=== PATIENT | male | born 1960 | race Caucasian/White ===

== ENCOUNTER 2019-07-26 02:45 | Emergency (ER) | payer MEDICARE, SELFPAY ==
[2019-07-26 02:52] VITALS: BP 155/84; PULSE 80; RESP 16; TEMP 36.9; O2SAT 94; BMI 25.8
--- NOTE | 2019-07-26 02:56 | ED_ITS ---
HPI - Male Genitourinary General: Chief complaint: Urogenital-Male Stated complaint: difficulty urinating Time Seen by Provider: 07/26/19 02:53 History of Present Illness: HPI Narrative: Mr. Camacho is a nice 59-year-old male who comes in complaining of difficulty passing urine this evening. Patient states he is got BPH and has been having increased difficulty over the past 2 weeks. Denies any fevers or chills. He denies any dysuria. Has abdominal pain. States tonight he just has a hard time initiating a stream. Denies any back pain or flank pain. Associated symptoms: Deny dysuria, hematuria, nausea, urinary incontinence or vomiting Review of Systems General: Reports: other (negative unless marked) Const: Denies: fever, chills, body aches, fatigue, malaise or diaphoresis Eyes: Denies: change in vision or blurry vision ENMT: Denies: throat pain, painful swallowing, hoarseness, ear pain, ear discharge, Change in hearing or nasal discharge Card: Denies: chest pain, palpitations, irregular heart rhythm, syncope, pre- syncope, shortness of breath on exertion or shortness of breath when lying down Resp: Denies: shortness of breath, productive cough, non-productive cough, wheezing, coughing up blood or chest congestion GI: Denies: abdominal pain, nausea, vomiting, vomiting blood, coffee grounds in vomit, diarrhea, constipation, cramping, blood in stool or black tarry stool : Reports: difficulty urinating; Denies: flank pain, painful urination, urinary frequency, urinary urgency, urinary incontinence or blood in urine Musc: Denies: neck pain, back pain, extremity pain, extremity swelling, joint pain, joint swelling, joint warmth or joint stiffness Skin/Breast: Denies: rash, skin tenderness or yellow skin Neuro: Denies: headache, numbness in extremities, weakness in extremities, changes in sensation, lack of coordination, difficulty walking, dizziness, vertigo or confusion Endo: Denies: excessive thirst, tired all the time, cold intolerance, excessive sweating, flushing or hot flashes Paco/Lymph: Denies: easy bruising, easy bleeding, petechiae or enlarged lymph nodes All/Imm: Denies: hives, throat swelling, tongue swelling, facial swelling or acute wheezing PFSH ED PFSH: Medical History BPH (benign prostatic hyperplasia) Crohn's disease Social History Smoking and tobacco status: current every day smoker Physical Exam Const: COMMON NORMALS: no apparent distress, oriented x3, no limitations, healthy appearing and well nourished EXAM LIMITATIONS: no altered mental status GENERAL APPEARANCE: cooperative, well kempt and well developed ORIENTATION/CONSCIOUSNESS: Yes awake HENMT: COMMON NORMALS: normocephalic, head/scalp atraumatic, hearing grossly normal bilaterally, external ears normal, EAC's normal, external nose normal and moist oral mucous membranes HEAD & SCALP: normal to inspection, normocephalic and atraumatic FACE & SINUS: normal facial exam and face symmetric NOSE: external nose normal and nares normal EXTERNAL EAR: Yes external ears normal EXTERNAL AUDITORY CANAL: EAC's normal MOUTH: oral and palatal mucosa normal and tongue normal Eye: COMMON NORMALS: PERRL, EOMs intact bilaterally, conjunctivae normal and no scleral icterus GENERAL EYE: normal appearance of both eyes and normal light reflex CONJUNCTIVA: Yes conjunctivae normal SCLERA: sclerae normal CORNEA: Yes corneas normal PUPIL: Yes PERRL DIRECT OPHTHALMOSCOPY: Yes normal light reflex Neck/C-Spine: COMMON NORMALS: full ROM, no lymphadenopathy, supple, no meningeal signs and no JVD GENERAL: Yes normal visual inspection and Yes trachea midline CERVICAL SPINE: Yes cervical ROM normal Chest: COMMONS NORMALS: inspection of chest normal and palpation of chest normal Resp: COMMON NORMALS: normal respiratory effort, no retractions, no use of accessory muscles and clear to auscultation bilaterally EFFORT & INSPECTION: Yes able to speak in complete sentences AUSCULTATION: clear to auscultation bilaterally Cardio: COMMON NORMALS: no JVD, regular rate, regular rhythm, S1 normal heart sound, S2 normal heart sound, no gallops, no clicks, no murmurs and no rub JUGULAR VENOUS DISTENTION: no JVD RATE: regular rate RHYTHM: regular rhythm HEART SOUNDS: S1 normal and S2 normal GI: COMMON NORMALS: soft to palpation, non-tender, no hepatosplenomegaly and no masses INSPECTION: Yes normal to inspection PALPATION: Yes soft and Yes no hepatosplenomegaly : COMMON NORMALS: Yes no CVA tenderness BLADDER/KIDNEY EXAM: Yes no CVA tenderness Back/Pelvis: COMMON NORMALS: no CVA tenderness, thoracic and lumbar spine normal to inspection, no thoracic nor lumbar tenderness and thoraco-lumbar ROM normal Extremity: COMMON NORMALS: normal to inspection, full ROM, normal capillary refill, no joint enlargement, no clubbing, cyanosis or edema and no calf ten derness Neuro: COMMON NORMALS: oriented x3, CN's II-XII intact bilaterally, moves all extremities, no focal motor deficits and no sensory deficits noted MENINGEAL SIGNS: Yes no meningeal signs Psych: COMMON NORMALS: mental status grossly normal, thought process normal, cooperative, affect normal, speech normal and activity/motor behavior normal APPEARANCE: Yes well kempt SPEECH: Yes normal speech THOUGHT PROCESS: normal thought process Skin: COMMON NORMALS: no rashes or lesions noted, skin turgor normal, no jaundice, no petechiae and no mottling GENERAL SKIN EXAM: no rashes or lesions noted and turgor normal Course Vital Signs: Vital signs: Vital Signs Temperature 98.4 F 07/26/19 02:52 Pulse Rate 78 07/26/19 03:25 Respiratory Rate 16 07/26/19 03:25 Blood Pressure 123/78 07/26/19 03:25 Pulse Oximetry 98 07/26/19 03:25 MDM - Male MDM Narrative: Medical decision making narrative: A Sanders catheter was placed and over 600 cc of light yellow urine was obtained. Patient had tremendous relief in his discomfort. Because of his Remicade for his Crohn's disease I am going to place him on antibiotic. He will follow-up with Dr. Paige and use a Sanders catheter and leg bag until seen by him. I see no sign of infection at this time the patient is afebrile, his white count is slightly elevated but he is urine is clear. Lab Data: Attestation: I reviewed the patient's lab results. Labs: Lab Results 07/26/19 07/26/19 07/26/19 Range/Units 03:30 03:30 03:30 WBC 10.8 H (4.0-10.0) 10^3/ uL RBC 4.80 (4.1-5.3) 10^6/u L Hgb 14.8 (11.7-16.6) g/dL Hct 44.9 (42.0-52.0) % MCV 93.5 (80-94) fL MCH 30.8 (28.0-34.0) pg MCHC 33.0 (30.0-36.0) g/dL RDW 13.7 (12.1-15.1) % Plt Count 258 (130-400) 10^3/c mm MPV 10.3 (7.4-10.4) fL Neut % (Auto) 81.5 % Lymph % (Auto) 10.8 % [place] % (Auto) 5.9 % Eos % (Auto) 1.2 % Baso % (Auto) 0.3 % Neut # (Auto) 8.8 H (1.8-7.7) 10^3/u L Lymph # (Auto) 1.2 (0.8-4.8) 10^3/u L [place] # (Auto) 0.6 (0.2-0.9) 10^3/u L Eos # (Auto) 0.1 (0.0-0.8) 10^3/u L Baso # (Auto) 0.0 (0.0-0.1) 10^3/u L Nucleated RBC % (a uto) 0 % Nucleated RBCs # 0.0 /100WBC Sodium 141 (136-145) mmol/L Potassium 3.5 (3.5-5.1) mmol/L Chloride 102 (98-107) mmol/L Carbon Dioxide 26 (22-29) mmol/L Anion Gap 16.5 (5-19) BUN 6 L (8-23) mg/dL Creatinine 0.9 (0.7-1.2) mg/dL GFR Calculation 86.1 L (90-130) mL/min Glucose 114 (65-115) mg/dL Calculated Osmolal ity 289 (285-295) mOsm/k g Calcium 9.6 (8.5-10.5) mg/dL Total Bilirubin 0.2 (0.15-1.2) mg/dL AST 19 (0-40) U/L ALT 13 (0-41) U/L Alkaline Phosphata se 97 (40-130) IU/L Total Protein 8.0 (6.6-8.7) g/dL Albumin 4.5 (3.5-5.2) g/dL Globulin 3.5 (1.3-4.6) g/dL Urine Color Yellow (Yellow) Urine Appearance Clear (CLEAR) Urine pH 5 (5-7) Ur Specific Gravit y 1.010 (1.005-1.030) Urine Protein Neg (Negative) Urine Glucose (UA) Norm (Normal) Urine Ketones Negative (Negative) Urine Blood 2+ H (Negative) Urine Nitrate Negative (Negative) Urine Bilirubin Neg (NEGATIVE) Urine Urobilinogen Norm (Negative) mg/dL Ur Leukocyte Jo-Ann ase Negative (Negative) Urine RBC Rare (0-2) /hpf Urine WBC Rare (0-5) /hpf Ur Squamous Epith Cells Rare (0-5) Urine Bacteria Trace (NONE) Discharge Plan Discharge Patient Disposition: Home, Self-Care Clinical Impression: Acute urinary retention Condition: Stable Prescriptions: New ciprofloxacin HCl [Cipro] 500 mg tablet 500 mg PO BID Qty: 20 RF: 0 Discharge Orders: Discharge Order (Routine); Ordered 07/26/19 Ordered By: Kerri Mueller Referrals: Dread Paige MD [Physician] - 1-3 days Discharge Diet: Advance as tolerated Discharge Activity: Increase activity as tolerated Patient Instructions: Urinary Retention in Men (ED) Activity Restrictions/Additional Instructions: Please return to the ER immediately for any of the signs or symptoms listed on your discharge instruction sheets, worsening/changing of your symptoms, you are not getting better as quickly as expected, or for ANY other cause or concerns. Take the antibiotics as I have prescribed and be certain to follow-up with Dr. Paige as soon as possible for further evaluation and care. Coding Level of Care Code ED Ophthalmic Technician for Tessa Fwsurya Exam Comprehensive
[2019-07-26 03:25] VITALS: BP 123/78; PULSE 78; RESP 16; O2SAT 98
[2019-07-26 03:38] LABS: Basophils % 0.3 %; Eosinophils # 0.1 10^3/uL (0.0-0.8); Eosinophils % 1.2 %; Hematocrit 44.9 % (42.0-52.0); Hemoglobin 14.8 g/dL (11.7-16.6); Lymphocytes # 1.2 10^3/uL (0.8-4.8); Lymphocytes % 10.8 %; Mean Corpuscular Hemoglobin 30.8 pg (28.0-34.0); Mean Corpuscular Volume 93.5 fL (80-94); Mean Platelet Volume 10.3 fL (7.4-10.4); Monocytes # 0.6 10^3/uL (0.2-0.9); Monocytes % 5.9 %; Neutrophils # 8.8 10^3/uL (1.8-7.7); Neutrophils % 81.5 %; Nucleated Red Blood Cells % 0 %; Platelet Count 258 10^3/cmm (130-400); Red Cell Distribution Width 13.7 % (12.1-15.1); White Blood Count 10.8 10^3/uL (4.0-10.0)
[2019-07-26 03:58] LABS: Alanine Aminotransferase 13 U/L (0-41); Albumin Level 4.5 g/dL (3.5-5.2); Alkaline Phosphatase 97 IU/L (40-130); Anion Gap 16.5 (5-19); Aspartate Amino Transferase 19 U/L (0-40); Bilirubin Urine Neg (NEGATIVE); Blood Urea Nitrogen 6 mg/dL (8-23); Blood Urine 2+ (Negative); Calcium 9.6 mg/dL (8.5-10.5); Carbon Dioxide 26 mmol/L (22-29); Chloride 102 mmol/L (98-107); Globulin 3.5 g/dL (1.3-4.6); Glomerular Filtration Rate 86.1 mL/min (90-130); Glucose 114 mg/dL (65-115); Glucose Urine UA Norm (Normal); Ketones Urine Negative (Negative); Leukocyte Esterase Urine Negative (Negative); Nitrate Urine Negative (Negative); Osmolality Calculated 289 mOsm/kg (285-295); Potassium 3.5 mmol/L (3.5-5.1); Protein Urine Neg (Negative); RBC Urine RARE /hpf (0-2); Sodium 141 mmol/L (136-145); Squamous Epithelial Cell Urine RARE (0-5); Total Bilirubin 0.2 mg/dL (0.15-1.2); Urine Appearance Clear (CLEAR); Urine Color Yellow (Yellow); Urobilinogen Urine Norm (Negative); WBC Urine RARE /hpf (0-5); pH Urine 5 (5-7)
[2019-07-26 03:59] LABS: Bacteria Urine TRACE
--- NOTE | 2019-07-26 04:20 | PC.NURSE ---
Sanders cath converted to leg bag per order, teaching completed on home care with good return demonstration and questions asked and answered.
--- NOTE | 2019-07-29 11:23 | DCPLANNER ---
customer technical services manager had message to schedule a follow up appointment for patient with Dr. Paige. customer technical services manager called the office of Dr. Paige, spoke with Samantha, gave clinic patients information. customer technical services manager was told that patients information would be printed and given to Myriam for review. Clinic will call patient with appointment information.
--- NOTE | 2019-07-31 14:34 | DCPLANNER ---
Patient has a follow up appointment scheduled for , August 08, [address] at 9:[address] Paige. Clinic will call patient with appointment information.
--- NOTE | 2019-09-12 14:39 | DCPLANNER ---
Patient did attend appointment scheduled for 08.08.19 with .
== END 2019-07-26 04:30 | disposition home or self-care (01) ==
PROVIDERS: Physician Assistant; Emergency Provider Emergency Medicine
DX: N39.0 Urinary tract infection, site not specified (principal); F17.210 Nicotine dependence, cigarettes, uncomplicated
CPT/HCPCS: 12345; 51702; 80053; 81001; 85025; 99283